=== PATIENT | female | born 1970 | race Hispanic/Latino ===

== ENCOUNTER 2019-04-11 09:38 | Emergency (ER) | payer BC ==
[2019-04-11] MEDS ORDERED: DEXAMETHASONE SOD PHOSPHATE 10MG/ML 1ML VIAL ONE (10:03)
[2019-04-11] MEDS ORDERED: DIPHENHYDRAMINE HCL 25 MG CAPSULE ONE (10:03)
== END 2019-04-11 11:43 | disposition home or self-care (01) ==
LOC: EDH 09:38
DX: R21 Rash and other nonspecific skin eruption (principal); Z98.890 Other specified postprocedural states
CPT/HCPCS: 96372; 99284; J1100; Q0163

== ENCOUNTER → 2022-03-26 | Outpatient (CLI) | payer BC, OTHER | END | disposition home or self-care (01) | LOC: RAH 12:31 | PROVIDERS: ATTEND Internal Medicine Cardiovascular Disease | DX: Z13.6 Encounter for screening for cardiovascular disorders (principal) | CPT/HCPCS: 75571 ==

== ENCOUNTER → 2022-11-13 | Outpatient (CLI) | payer OTHER | END | disposition home or self-care (01) | LOC: RAH 08:31 | PROVIDERS: ATTEND Internal Medicine Endocrinology, Diabetes & Metabolism | DX: M81.0 Age-related osteoporosis without current pathological fracture (principal) | CPT/HCPCS: 73521; 73552 ==

== ENCOUNTER 2023-01-22 05:53 | Day surgery (SDC) | payer OTHER ==
[2023-01-20 12:00] LABS: BASOPHILS % (AUTO) 0.3 % (0.0-5.0); EOSINOPHILS % (AUTO) 0.9 % (0.0-8.0); HEMATOCRIT 43.1 % (36-48); LYMPHOCYTES % (AUTO) 34.5 % (21.0-51.0); MEAN CORPUSCULAR HEMOGLOBIN 31.1 pg (27.0-33.0); MEAN CORPUSCULAR HGB CONC 32.3 g/dL (32.0-36.0); MEAN CORPUSCULAR VOLUME 96.4 fL (79-99); NEUTROPHILS % (AUTO) 57.1 % (40.0-77.0); PLATELET COUNT (AUTO) 241 K/uL (130-400); RED BLOOD CELL COUNT(AUTO) 4.47 MIL/uL (4.00-5.50); RED CELL DISTRIBUTION WIDTH 12.6 % (11.0-15.5); WHITE BLOOD COUNT (AUTO) 6.4 K/uL (4.8-10.8)
[2023-01-20 12:18] LABS: CREATININE 0.6 mg/dL (0.5-1.5); INR 0.93 (0.85-1.15); POTASSIUM 4.5 mmol/L (3.5-5.1); PROTHROMBIN TIME 10.8 SEC (9.6-11.6)
[2023-01-20 12:19] LABS: PARTIAL THROMBOPLASTIN TIME 26.5 SEC (26.3-35.5)
[2023-01-20 12:23] VITALS: BP 114/53; PULSE 69; RESP 16
[~2023-01-22] VITALS: Ht 154.9 cm; Wt 48.9 kg
[2023-01-22] VITALS (8 sets, daily range): BP systolic 99–133; BP diastolic 43–108; PULSE 60–83; RESP 13–21
[~2023-01-22 05:53] MED LIST: ASPI-1197 PO; DENO60DI SQ; ESTR1GEL TD; ROSU20TA23 PO
[2023-01-22] MEDS ORDERED: 0.9%NACL 1000ML 1,000 ML IV ONE (06:14)
[2023-01-22] MEDS ORDERED: BUPIVACAINE/PF 0.25% 10ML VIAL IJ ONE (08:14)
[2023-01-22] MEDS ORDERED: LIDOCAINE HCL 1% MDV 50ML VIAL ONE (08:14)
[2023-01-22] MEDS ORDERED: CEFAZOLIN SODIUM 1 GM VIAL ONE (08:15)
[2023-01-22] MEDS ORDERED: MIDAZOLAM HCL 1 MG/ML 2ML VIAL ONE ×4 (08:15→09:20)
[2023-01-22] MEDS ORDERED: MEPERIDINE-PF 25 MG/ML SYG ONE ×4 (08:15→09:20)
[2023-01-22] MEDS ORDERED: TRAM50TA4 PO (10:17)
[2023-01-22] MEDS ORDERED: ACETAMINOPHEN WITH CODEINE 1 TAB TAB PO PRN (10:30)
[2023-01-22] MEDS ORDERED: ACETAMINOPHEN 500 MG TABLET PO PRN (10:30)
== END 2023-01-22 13:00 | disposition home or self-care (01) ==
LOC: DAH 05:53
PROVIDERS: ATTEND Internal Medicine Cardiovascular Disease
DX: Z45.02 Encounter for adjustment and management of automatic implantable cardiac defibrillator (principal); I49.8 Other specified cardiac arrhythmias; E78.5 Hyperlipidemia, unspecified; Z79.82 Long term (current) use of aspirin; Z79.01 Long term (current) use of anticoagulants; Z79.899 Other long term (current) drug therapy; Z98.890 Other specified postprocedural states
CPT/HCPCS: 80048; 84703; 85025; 85610; 85730; 36415; 93005; 33262; C1722; J0690; J7030; J2250 ×4; J3490 ×2; J2175 ×4; A4215; A6251; A4222; A4221; A4663; A4216; A6258; A4606; A4223 ×3; 99156; 99157

== ENCOUNTER 2023-04-30 05:48 | Day surgery (SDC) | payer OTHER ==
[2023-04-24 14:39] VITALS: BP 111/56; PULSE 72; RESP 13
[~2023-04-30] VITALS: Ht 154.9 cm; Wt 49.2 kg
[2023-04-30] VITALS (10 sets, daily range): BP systolic 97–137; BP diastolic 51–65; PULSE 76–89; RESP 14–20
[~2023-04-30 05:48] MED LIST changes: +ERGO500093 PO; -ESTR1GEL TD; +MV-M1TAB88 PO; +PROG100C11 PO; +[UNRECOGNIZED DRUG - MIXTURE] PO; +[UNRECOGNIZED DRUG - OTHER] TD
[2023-04-30] MEDS ORDERED: PROPOFOL 10 MG/ML 20ML VIAL IV ONE (07:08)
[2023-04-30] MEDS ORDERED: LIDOCAINE HCL 1% 20 ML VIAL ONE (07:09)
[2023-04-30] MEDS ORDERED: SIMETHICONE 40 MG/0.6 ML ML ONE (07:25)
[2023-04-30] MEDS ORDERED: ONDANSETRON 4MG INJ ONE (07:49)
== END 2023-04-30 08:40 | disposition home or self-care (01) ==
LOC: DAH 05:48 → ENDO 05:48
PROVIDERS: ATTEND Internal Medicine
DX: Z12.11 Encounter for screening for malignant neoplasm of colon (principal); M81.0 Age-related osteoporosis without current pathological fracture; I49.9 Cardiac arrhythmia, unspecified; E78.5 Hyperlipidemia, unspecified; Z79.01 Long term (current) use of anticoagulants; Z79.899 Other long term (current) drug therapy; Z72.89 Other problems related to lifestyle; Z95.0 Presence of cardiac pacemaker
CPT/HCPCS: 45378; J2704; J2405; A4620; A4215 ×2; A4223; A7002; A4222; A4221; A4663; A4216; J7030; A4606; J3490

== ENCOUNTER 2023-05-19 10:52 | Emergency (ER) | payer OTHER ==
[~2023-05-19] VITALS: Ht 154.9 cm; Wt 48.5 kg
[2023-05-19 11:52] LABS: BASOPHILS # (AUTO) 0.01 K/uL (0.00-0.20); BASOPHILS % (AUTO) 0.1 % (0.0-5.0); EOSINOPHILS # (AUTO) 0.04 K/uL (0.00-0.70); EOSINOPHILS % (AUTO) 0.6 % (0.0-8.0); HEMATOCRIT 39.6 % (36-48); IMMATURE GRANULOCYTE ABSOLUTE 0.02 K/uL (0-1); LYMPHOCYTES # (AUTO) 1.8 K/uL (1.0-4.8); LYMPHOCYTES % (AUTO) 24.9 % (21.0-51.0); MEAN CORPUSCULAR HEMOGLOBIN 31.6 pg (27.0-33.0); MEAN CORPUSCULAR HGB CONC 33.1 g/dL (32.0-36.0); MEAN CORPUSCULAR VOLUME 95.4 fL (79-99); MONOCYTES # (AUTO) 0.7 K/uL (0.1-1.0); MONOCYTES % (AUTO) 9.3 % (3.0-13.0); NEUTROPHILS # (AUTO) 4.6 K/uL (1.8-7.7); NEUTROPHILS % (AUTO) 64.8 % (40.0-77.0); PLATELET COUNT (AUTO) 248 K/uL (130-400); RED BLOOD CELL COUNT(AUTO) 4.15 MIL/uL (4.00-5.50); RED CELL DISTRIBUTION WIDTH 11.7 % (11.0-15.5); WHITE BLOOD COUNT (AUTO) 7.1 K/uL (4.8-10.8)
[2023-05-19 12:07] LABS: INR 0.94 (0.85-1.15); PROTHROMBIN TIME 10.9 SEC (9.6-11.6)
[2023-05-19 12:08] LABS: PARTIAL THROMBOPLASTIN TIME 25.8 SEC (26.3-35.5)
[2023-05-19 12:28] LABS: APPEARANCE,URINE CLEAR (CLEAR); BILIRUBIN,URINE NEGATIVE (NEGATIVE); COLOR,URINE COLORLESS (YELLOW); GLUCOSE, URINE (UA) NEGATIVE (NEGATIVE); KETONES,URINE NEGATIVE (NEGATIVE); LEUKOCYTE ESTERASE ,URINE NEGATIVE Leu/uL (NEGATIVE); NITRATE,URINE NEGATIVE (NEGATIVE); OCCULT BLOOD,URINE SMALL (NEGATIVE); PROTEIN,URINE NEGATIVE (NEGATIVE); UROBILINOGEN,URINE 0.2 mg/dL (0.2-1.0)
[2023-05-19 12:39] LABS: ADD UA MICROSCOPIC YES
[2023-05-19 12:59] LABS: MUCUS,URINE RARE LPF (None Seen); RBC,URINE 0-1 /HPF (0-1)
[2023-05-19 12:59] LABS: CREATININE 0.5 mg/dL (0.5-1.5)
[2023-05-19 13:00] LABS: ALBUMIN 3.5 g/dL (3.5-5.0); BILIRUBIN,TOTAL 0.4 mg/dL (0.2-1.0); TOTAL PROTEIN, SERUM 6.3 g/dL (6.0-8.3)
[2023-05-19 15:26] VITALS: BP 124/75; PULSE 87; RESP 18; O2SAT 98
== END 2023-05-19 15:44 | disposition home or self-care (01) ==
LOC: EDH 10:52
DX: R00.2 Palpitations (principal); R00.0 Tachycardia, unspecified; R79.89 Other specified abnormal findings of blood chemistry; E78.00 Pure hypercholesterolemia, unspecified; Z79.82 Long term (current) use of aspirin; Z79.890 Hormone replacement therapy; Z79.899 Other long term (current) drug therapy; Z95.810 Presence of automatic (implantable) cardiac defibrillator; Z98.890 Other specified postprocedural states
CPT/HCPCS: 36415; 71045; 80053; 81001; 84443; 84484; 85025; 85378; 85610; 85730; 93005; 93970

== ENCOUNTER → 2023-06-09 | Outpatient (CLI) | payer OTHER | END | disposition home or self-care (01) | LOC: SHCH 11:26 | PROVIDERS: ATTEND Student in an Organized Health Care Education/Training Program | DX: R06.02 Shortness of breath (principal) | CPT/HCPCS: 93306 ==

== ENCOUNTER → 2023-12-16 | Outpatient (CLI) | payer OTHER ==
[2023-12-16 12:27] LABS: CHOLESTEROL 254 mg/dL (<200); HDL CHOLESTEROL 77 mg/dL (35-85); LDL DIRECT 159 mg/dL (0-99); TRIGLYCERIDES 66 mg/dL (30-200)
== END | disposition home or self-care (01) ==
LOC: LAB 08:19
PROVIDERS: ATTEND Student in an Organized Health Care Education/Training Program
DX: I49.8 Other specified cardiac arrhythmias (principal); R00.2 Palpitations; E05.90 Thyrotoxicosis, unspecified without thyrotoxic crisis or storm; E78.5 Hyperlipidemia, unspecified; Z95.810 Presence of automatic (implantable) cardiac defibrillator
CPT/HCPCS: 36415; 80061

== ENCOUNTER → 2023-12-24 | Outpatient (CLI) | payer OTHER ==
[2023-12-24 13:22] LABS: T4 (THYROXINE) 8.7 ug/dL (4.7-13.3); THYROID STIMULATING HORMONE 1.16 uIU/mL (0.36-3.74)
== END | disposition home or self-care (01) ==
LOC: LAB 09:20
PROVIDERS: ATTEND Student in an Organized Health Care Education/Training Program
DX: R00.2 Palpitations (principal); I49.8 Other specified cardiac arrhythmias; E05.90 Thyrotoxicosis, unspecified without thyrotoxic crisis or storm
CPT/HCPCS: 36415; 84436; 84443; 84445; 84479; 83520

== ENCOUNTER → 2024-01-12 | Outpatient (CLI) | payer OTHER ==
[2024-01-12 16:46] LABS: ALBUMIN 4.1 g/dL (3.5-5.0); BILIRUBIN,TOTAL 0.3 mg/dL (0.2-1.0); CREATININE 0.7 mg/dL (0.5-1.0); MAGNESIUM 1.8 mg/dL (1.80-2.40); POTASSIUM 3.8 mmol/L (3.5-5.1); TOTAL PROTEIN, SERUM 7.5 g/dL (6.0-8.3)
== END | disposition home or self-care (01) ==
LOC: LAB 15:26
PROVIDERS: ATTEND Student in an Organized Health Care Education/Training Program
DX: R00.2 Palpitations (principal); R53.83 Other fatigue; Z95.810 Presence of automatic (implantable) cardiac defibrillator
CPT/HCPCS: 36415; 80053; 83735; 84439; 84481

== ENCOUNTER → 2024-02-05 | Outpatient (CLI) | payer OTHER | END | disposition home or self-care (01) | LOC: RAH 08:29 | PROVIDERS: ATTEND Nurse Practitioner Adult Health | DX: M54.2 Cervicalgia (principal) | CPT/HCPCS: 72040 ==

== ENCOUNTER → 2024-03-25 | Outpatient (CLI) | payer OTHER ==
[2024-03-25 15:23] LABS: ALBUMIN 3.8 g/dL (3.5-5.0); BILIRUBIN,TOTAL 0.4 mg/dL (0.2-1.0); CREATININE 0.7 mg/dL (0.5-1.0); TOTAL PROTEIN, SERUM 7.1 g/dL (6.0-8.3)
== END | disposition home or self-care (01) ==
LOC: LAB 14:34
PROVIDERS: ATTEND Internal Medicine Gastroenterology
DX: M54.6 Pain in thoracic spine (principal); Z80.0 Family history of malignant neoplasm of digestive organs; Z95.810 Presence of automatic (implantable) cardiac defibrillator
CPT/HCPCS: 36415; 72070; 80053

== ENCOUNTER → 2024-03-31 | Outpatient (CLI) | payer OTHER ==
[~2024-03-31] MED LIST changes: +IOHEXOL 350 MG/ML 100ML INFUS..BTL IV ONE
== END | disposition home or self-care (01) ==
LOC: RAH 08:57
PROVIDERS: ATTEND Internal Medicine Gastroenterology
DX: M47.815 Spondylosis without myelopathy or radiculopathy, thoracolumbar region (principal); Z80.0 Family history of malignant neoplasm of digestive organs
CPT/HCPCS: 74170; Q9967

== ENCOUNTER → 2024-05-13 | Outpatient (CLI) | payer OTHER ==
[~2024-05-13] MED LIST changes: -IOHEXOL 350 MG/ML 100ML INFUS..BTL IV ONE
[2024-05-13 12:59] LABS: CHOLESTEROL 189 mg/dL (<200); HDL CHOLESTEROL 75 mg/dL (35-85); LDL DIRECT 102 mg/dL (0-99); TRIGLYCERIDES 55 mg/dL (30-200)
== END | disposition home or self-care (01) ==
LOC: LAB 08:08
PROVIDERS: ATTEND Student in an Organized Health Care Education/Training Program
DX: E78.5 Hyperlipidemia, unspecified (principal)
CPT/HCPCS: 36415; 80061

== ENCOUNTER → 2024-05-14 | Outpatient (CLI) | payer OTHER ==
--- NOTE | 2024-05-17 15:49 | HMCSR ---
APPROVED REPORT Duplex Results A/PTransverseLongitudinalVelocityWaveform Proximal Aorta 2.46cm2.08cm1.28rw138.70 cm/secNormal Mid Aorta 1.96cm2.03cm1.67pr854.00 cm/secNormal Distal Aorta 1.30cm1.39cm1.45cm61.50 cm/secNormal Rt. Common Iliac Artery0.92cm0.80cm0.23in802.40 cm/secNormal Lt. Common Iliac Artery 0.90cm0.96cm0.71zq314.90 cm/secNormal Techologist Impression The abdominal aorta and the bilateral common iliac arteries are patent and normal in size without pete dence of aneurysm. There is evidence of minimal atherosclerotic disease. Conclusion The abdominal aorta and the bilateral common iliac arteries are patent and normal in size without pete dence of aneurysm. There is evidence of minimal atherosclerotic disease. Conclusion The abdominal aorta and the bilateral common iliac arteries are patent and normal in size without pete dence of aneurysm. There is evidence of minimal atherosclerotic disease.
== END | disposition home or self-care (01) ==
LOC: SHCH 07:46
PROVIDERS: ATTEND Student in an Organized Health Care Education/Training Program
DX: I70.223 Atherosclerosis of native arteries of extremities with rest pain, bilateral legs (principal)
CPT/HCPCS: 93978

== ENCOUNTER → 2024-08-16 | Outpatient (CLI) | payer OTHER ==
[2024-08-16 12:33] LABS: ALBUMIN 4.2 g/dL (3.5-5.0); BILIRUBIN,TOTAL 0.3 mg/dL (0.2-1.0); CREATININE 0.7 mg/dL (0.5-1.0); POTASSIUM 3.9 mmol/L (3.5-5.1); TOTAL PROTEIN, SERUM 7.4 g/dL (6.0-8.3)
== END | disposition home or self-care (01) ==
LOC: LAB 09:06
PROVIDERS: ATTEND Student in an Organized Health Care Education/Training Program
DX: I70.0 Atherosclerosis of aorta (principal); E78.5 Hyperlipidemia, unspecified
CPT/HCPCS: 36415; 80053

== ENCOUNTER → 2024-09-28 | Outpatient (CLI) | payer OTHER ==
[2024-09-28 12:28] LABS: CHOLESTEROL 201 mg/dL (<200); HDL CHOLESTEROL 88 mg/dL (35-85); LDL DIRECT 100 mg/dL (0-99); TRIGLYCERIDES 59 mg/dL (30-200)
== END | disposition home or self-care (01) ==
LOC: LAB 08:23
PROVIDERS: ATTEND Student in an Organized Health Care Education/Training Program
DX: E78.5 Hyperlipidemia, unspecified (principal)
CPT/HCPCS: 36415; 80061

== ENCOUNTER → 2025-06-22 | Outpatient (CLI) | payer OTHER ==
--- NOTE | 2025-06-23 12:45 | HMCIMG ---
EXAM: CR Thoracic Spine, 2 Views. CLINICAL HISTORY: Pain in the thoracic spine COMPARISON: Prior study dated 03/25/2025 FINDINGS: No acute fracture or aggressively appearing osseous lesion. The disc spaces are preserved. The paraspinal soft tissue lines are unremarkable. The visualized lungs are clear. Visualization of the upper thoracic spine is limited on the lateral view by overlying structures. Single-chamber implantable cardioverter defibrillator in the left chest wall with tip in expected position. IMPRESSION: No acute thoracic spine osseous abnormality. Single-chamber ICD in the left chest wall with tip in expected position. /[place]
--- NOTE | 2025-06-23 12:45 | HMCIMG ---
EXAM: CR Cervical spine, 3 Views. CLINICAL HISTORY: Cervicalgia COMPARISON: None provided. FINDINGS: No acute fracture. Mild straightening of the cervical curve suggests paraspinal muscle spasm. The disc spaces are preserved. There is mild narrowing and sclerosis of the facet joint at the C5-C6 and C7-T1 levels, which represent cervical spondylotic changes. No prevertebral soft tissue swelling. The visualized lung apices are clear. IMPRESSION: Mild straightening of the cervical curve suggests paraspinal muscle spasm. Cervical spondylotic changes at C5-C6 and C7-T1 levels. /[place]
== END | disposition home or self-care (01) ==
LOC: RAH 08:00
PROVIDERS: ATTEND Nurse Practitioner Adult Health
DX: M47.813 Spondylosis without myelopathy or radiculopathy, cervicothoracic region (principal); M48.03 Spinal stenosis, cervicothoracic region; M54.2 Cervicalgia; M54.6 Pain in thoracic spine
CPT/HCPCS: 72040; 72070